=== PATIENT | male | born 2000 | race Caucasian/White ===

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

== ENCOUNTER 2021-08-07 03:05 | Emergency (ER) | payer SELFPAY | END 2021-08-07 04:44 | disposition left against medical advice (07) | LOC: ERS 03:05 | DX: Z53.21 Procedure and treatment not carried out due to patient leaving prior to being seen by health care provider (principal) ==

== ENCOUNTER 2021-08-07 14:59 | Inpatient (IN) | payer SELFPAY ==
[2021-08-07] MEDS ORDERED: Morphine 4 MG/ML VIAL ONE ×2 (16:36→19:38)
[2021-08-07] MEDS ORDERED: CEFAZOLIN 2 GM VIAL ONE (16:36)
[2021-08-07 16:51] LABS: #Basophils 0.1 thou/uL (0.0-0.2); #Eosinphils 0.1 thou/uL (0.0-0.7); #Lymphocytes 1.9 thou/uL (1.20-3.40); #Monocytes 0.7 thou/uL (0.11-0.59); #Neutrophils 6.2 thou/uL (1.40-6.50); %Basophils 0.7 % (0.0-1.0); %Eosinophils 0.7 % (0.0-10.0); %Lymphocytes 20.9 % (21.0-51.0); %Monocytes 8.2 % (0.0-10.0); %Neutrophils 69.5 % (42.0-75.0); Hemoglobin 16.1 g/dL (14.0-18.0); Mean Corpuscular Hemoglobin 31.2 pg (27.0-31.0); Mean Corpuscular Volume 91.6 fL (78.0-98.0); Mean Platelet Volume 7.7 fL (7.4-10.4); Platelet Count 170 thou/uL (130-400); RBC Distribution Width 11.3 % (11.5-14.5); Red Blood Cell (RBC) Count 5.15 mill/uL (4.70-6.10)
[2021-08-07 17:02] LABS: PTT 28.8 sec (22.9-36.1); Prothrombin Time 13.6 sec (12.0-14.7)
[2021-08-07 17:13] LABS: Acetaminophen Less than 10.0 mcg/mL (10.0-30.0); Alcohol Less than 10 mg/dL (Less than 10); Salicylate Less than 8.0 mg/dL (15.0-30.0)
[2021-08-07 17:14] LABS: ALT (SGPT) 13 U/L (8-55); AST (SGOT) 17 U/L (5-34); Albumin 4.4 g/dL (3.5-5.0); Alkaline Phosphatase 71 U/L (40-110); Anion Gap 13 mmol/L (10-20); BUN (Urea Nitrogen) 8 mg/dL (8.9-20.6); Bilirubin, Total 1.1 mg/dL (0.2-1.2); Calc. Creatinine Clearance 0 mL/min (70-130); Calcium 9.4 mg/dL (7.8-10.44); Carbon Dioxide 27 mmol/L (22-29); Chloride 104 mmol/L (98-107); Globulin 2.6 g/dL (2.4-3.5); Glucose 96 mg/dL (70-105); Potassium 4.4 mmol/L (3.5-5.1); Sodium 140 mmol/L (136-145)
[2021-08-07] MEDS ORDERED: Ondansetron PF 4 MG/2 ML Vial IVP PRN (17:16)
[2021-08-07] MEDS ORDERED: Dextrose 5% in Water 1,000 ML IV PRN (17:16)
[2021-08-07] MEDS ORDERED: Morphine 4 MG/ML VIAL SLOW IVP PRN ×2 (17:16)
[2021-08-07] MEDS ORDERED: Ondansetron ODT 4 MG TAB PO PRN (17:16)
[2021-08-07] MEDS ORDERED: Dextrose 50% Abboject 50 ML SYRINGE SLOW IVP PRN (17:16)
[2021-08-07] MEDS ORDERED: traMADol HCl 50 MG TAB PO PRN ×2 (17:21)
[2021-08-07] MEDS ORDERED: Ibuprofen 800 MG TAB PO PRN (17:23)
[2021-08-07 17:26] LABS: Amphetamine Not Detected (NotDetected); Barbiturates Screen Not Detected (NotDetected); Benzodiazepine Screen Not Detected (NotDetected); Cocaine Metabolite Screen Detected (NotDetected); Methadone Not Detected (NotDetected); Methamphetamine Not Detected (NotDetected); Opiate Screen Not Detected (NotDetected); Oxycodone Screen Not Detected (NotDetected); Phencyclidine (PCP) Not Detected (NotDetected); THC/Cannabinoid Screen Detected (NotDetected); Tricyclic Screen Not Detected (NotDetected)
[2021-08-07] MEDS ORDERED: Sodium Chloride 0.9% 1,000 ML IV SCH (17:30)
[2021-08-07] MEDS ORDERED: Midazolam HCl 2 mg/2 ml Vial ONE (17:48)
[2021-08-07] MEDS ORDERED: fentaNYL Citrate/PF 100 MCG/2 ML SYRINGE ONE (17:49)
[2021-08-07] MEDS ORDERED: Succinylcholine 200 MG/10 ml SYRINGE FS ONE (18:10)
[2021-08-07] MEDS ORDERED: Lidocaine 1% PF 5 ML VIAL ONE (18:10)
[2021-08-07] MEDS ORDERED: Ketorolac Tromethamine 30 MG/ML VIAL ONE (18:10)
[2021-08-07] MEDS ORDERED: Ondansetron PF 4 MG/2 ML Vial ONE (18:10)
[2021-08-07] MEDS ORDERED: Dexamethasone 20 MG/5 ML VIAL ONE (18:10)
[2021-08-07] MEDS ORDERED: PROPOFOL 200 MG/20 ML VIAL ONE (18:10)
[2021-08-07] MEDS ORDERED: Meperidine HCl/PF 25 MG/ML VIAL ONE (19:26)
[2021-08-07] MEDS ORDERED: Ondansetron HCl/PF 4 MG/2 ML Vial IVP PRN (19:28)
[2021-08-07] MEDS ORDERED: HYDROmorphone 2 MG/ML VIAL SLOW IVP PRN (19:28)
[2021-08-07] MEDS ORDERED: Meperidine HCl/PF 25 MG/ML VIAL SLOW IVP PRN (19:28)
[2021-08-07] MEDS ORDERED: Promethazine HCl 25 MG/ML VIAL IM PRN (19:28)
[2021-08-07] MEDS ORDERED: Promethazine HCl 25 MG/ML VIAL IVPB PRN (19:28)
[2021-08-07] MEDS ORDERED: PACU-Morphine 4MG/ML VIAL SLOW IVP PRN (19:28)
[2021-08-07] MEDS: Acetaminophen 500 MG TAB PO SCH ×3 (20:38→23:47)
[2021-08-07] MEDS: Famotidine 20 MG TAB PO SCH (20:45)
[2021-08-07] MEDS: Cyclobenzaprine 10 MG TAB PO PRN (20:45)
[2021-08-07] MEDS: Morphine 4 MG/ML VIAL SLOW IVP PRN (20:46)
[2021-08-07] MEDS ORDERED: Acetaminophen/Codeine 30-300mg Tablet PO PRN (22:20)
[2021-08-07] MEDS ORDERED: Ketorolac Tromethamine 30 MG/ML VIAL IVP SCH (22:30)
[2021-08-07] MEDS ORDERED: Gabapentin 300 MG CAP PO SCH (22:30)
[2021-08-07 22:59] VITALS: BMI 19.3
[2021-08-07] MEDS: Acetaminophen/Codeine 30-300mg Tablet PO PRN (23:44)
[2021-08-07] MEDS: CEFAZOLIN 2 GM in Sodium Chloride 0.9% 100 ML IVPB SCH (23:46)
[2021-08-08] MEDS: Morphine 4 MG/ML VIAL SLOW IVP PRN (04:00)
[2021-08-08] MEDS: Acetaminophen/Codeine 30-300mg Tablet PO PRN (05:31)
[2021-08-08] MEDS: Acetaminophen 500 MG TAB PO SCH (05:33)
[2021-08-08 06:00] LABS: #Lymphocytes 0.7 thou/uL (1.20-3.40); #Monocytes 0.4 thou/uL (0.11-0.59); #Neutrophils 7.7 thou/uL (1.40-6.50); %Basophils 0.1 % (0.0-1.0); %Eosinophils 0.1 % (0.0-10.0); %Monocytes 4.8 % (0.0-10.0); Hemoglobin 15.1 g/dL (14.0-18.0); Mean Corpuscular HGB CONC 32.5 g/dL (32.0-36.0); Mean Corpuscular Hemoglobin 29.9 pg (27.0-31.0); Mean Corpuscular Volume 91.8 fL (78.0-98.0); Platelet Count 190 thou/uL (130-400); RBC Distribution Width 11.2 % (11.5-14.5); Red Blood Cell (RBC) Count 5.07 mill/uL (4.70-6.10); White Blood Cell (WBC) Count 8.8 thou/uL (4.8-10.8)
[2021-08-08] MEDS ORDERED: Ketorolac Tromethamine 30 MG/ML VIAL IVP SCH (06:00)
[2021-08-08 06:19] LABS: Anion Gap 13 mmol/L (10-20); BUN (Urea Nitrogen) 8 mg/dL (8.9-20.6); Calc. Creatinine Clearance 98 mL/min (70-130); Calcium 9.1 mg/dL (7.8-10.44); Carbon Dioxide 27 mmol/L (22-29); Chloride 102 mmol/L (98-107); Glucose 129 mg/dL (70-105); Potassium 4.6 mmol/L (3.5-5.1); Sodium 137 mmol/L (136-145)
[2021-08-08 06:20] LABS: Phosphorus 4.3 mg/dL (2.3-4.7)
[2021-08-08] MEDS: CEFAZOLIN 2 GM in Sodium Chloride 0.9% 100 ML IVPB SCH (08:03)
[2021-08-08] MEDS: Cyclobenzaprine 10 MG TAB PO PRN (08:04)
[2021-08-08] MEDS: Famotidine 20 MG TAB PO SCH (08:05)
[2021-08-08 08:54] VITALS: BP 123/80; TEMP 97.8
[2021-08-08] MEDS ORDERED: Gabapentin 300 MG CAP PO SCH (09:00)
== END 2021-08-08 11:20 | disposition home or self-care (01) | DRG 497 ==
LOC: ERS 14:59 → SDC/OP 17:30 → SJJU 20:40
PROVIDERS: ADMIT Nurse Practitioner Acute Care; ATTEND Surgery
PROC: 0Q9 Lower Bones, Drainage (ICD-10-PCS; principal; 2021-08-07)
DX: S82.62XB Displaced fracture of lateral malleolus of left fibula, initial encounter for open fracture type I or II (principal); Z20.822 Contact with and (suspected) exposure to COVID-19; F17.210 Nicotine dependence, cigarettes, uncomplicated; W34.00XA Accidental discharge from unspecified firearms or gun, initial encounter
CPT/HCPCS: 36415; 76000; 80048; 80053; 80306; 80307; 83735; 84100; 85025; 85610; 85730; J1100; J1885; J2175; J2250; J2270; J2405; J2704; J3490; J7050

== ENCOUNTER 2023-05-17 10:52 | Emergency (ER) | payer SELFPAY ==
[2023-05-17] MEDS ORDERED: Famotidine/PF 20 mg/2ml Vial ONE (12:07)
[2023-05-17] MEDS ORDERED: Pantoprazole 40 MG VIAL ONE (12:07)
[2023-05-17 12:15] LABS: #Basophils 0.1 thou/uL (0.0-0.2); #Eosinphils 0.2 thou/uL (0.0-0.7); #Monocytes 0.6 thou/uL (0.11-0.59); #Neutrophils 5.1 thou/uL (1.40-6.50); %Basophils 0.8 % (0.0-1.0); %Eosinophils 2.2 % (0.0-10.0); %Lymphocytes 21.4 % (21.0-51.0); %Monocytes 8.4 % (0.0-10.0); %Neutrophils 66.9 % (42.0-75.0); Hematocrit 48.4 % (42.0-52.0); Hemoglobin 16.9 g/dL (14.0-18.0); Mean Corpuscular HGB CONC 34.9 g/dL (32.0-36.0); Mean Corpuscular Volume 85.8 fl (78.0-98.0); Mean Platelet Volume 10.4 fL (7.4-10.4); Platelet Count 202 10x3/uL (130-400); RBC Distribution Width 11.9 % (11.5-14.5); Red Blood Cell (RBC) Count 5.64 mill/uL (4.70-6.10); White Blood Cell (WBC) Count 7.6 10x3/uL (4.8-10.8)
[2023-05-17 12:32] LABS: ALT (SGPT) 15 U/L (8-55); AST (SGOT) 20 U/L (5-34); Albumin 4.7 g/dL (3.5-5.0); Alkaline Phosphatase 61 U/L (40-110); Anion Gap 10 mmol/L (10-20); BUN (Urea Nitrogen) 17 mg/dL (8.9-20.6); Bilirubin, Total 2.4 mg/dL (0.2-1.2); Calc. Creatinine Clearance 0 mL/min (70-130); Calcium 10.1 mg/dL (7.8-10.44); Carbon Dioxide 30 mmol/L (22-29); Chloride 102 mmol/L (98-107); Estimated GFR 98; Globulin 2.7 g/dL (2.4-3.5); Glucose 89 mg/dL (70-105); Lipase 229 U/L (8-78); Potassium 4.4 mmol/L (3.5-5.1); Protein, Total 7.4 g/dL (6.0-8.3); Sodium 138 mmol/L (136-145)
== END 2023-05-17 15:05 | disposition home or self-care (01) ==
LOC: ERS 10:52
DX: K29.20 Alcoholic gastritis without bleeding (principal); E86.0 Dehydration; R74.8 Abnormal levels of other serum enzymes; F17.290 Nicotine dependence, other tobacco product, uncomplicated
CPT/HCPCS: 36415; 71045; 74177; 80053; 83690; 85025; 93005; 96361; 96374; 96375; C9113; S0028

== ENCOUNTER 2025-03-10 12:47 | Emergency (ER) | payer SELFPAY | END 2025-03-10 13:04 | disposition home or self-care (01) | LOC: ERS 12:47 | DX: S61.203D Unspecified open wound of left middle finger without damage to nail, subsequent encounter (principal); S61.205D Unspecified open wound of left ring finger without damage to nail, subsequent encounter; F17.290 Nicotine dependence, other tobacco product, uncomplicated; X58.XXXD Exposure to other specified factors, subsequent encounter | CPT/HCPCS: 99282 ==